=== PATIENT | female | born 1950 | race African-American/Black ===

== ENCOUNTER 2017-10-16 10:01 | Inpatient (IN) | payer MEDICARE, MEDICAID ==
[~2017-10-16] VITALS: Ht 157.5 cm; Wt 68.0 kg
[~2017-10-16 10:01] MED LIST: METF1000
--- NOTE | 2017-10-16 10:23 | NUR ---
PT BIB SELF C/O MIDSTERNAL CHEST PRESSURE SINCE 629 WITH SOB, RESPIRATIONS APPEAR SLIGHTLY LABORED BUT ENCOURAGED PATIENT TO TAKE CALM, DEEP, METERED BREATHS AND PT REPORTS GRADUAL RELIEF OF PAIN WITH DEEP BREATHING. ALSO C/O CONSTIPATION. DENIES ABD PAIN. SKIN WARM DRY. IN ER BED 12 ON MONITOR.
[2017-10-16] MEDS ORDERED: MULT-24 PO (10:25)
[2017-10-16] MEDS ORDERED: HYDR25TA4 PO (10:25)
[2017-10-16] MEDS ORDERED: POLY17PO4 PO (10:25)
[2017-10-16] MEDS ORDERED: ASPI-1169 PO (10:25)
[2017-10-16] MEDS ORDERED: METF-440 PO (10:25)
[2017-10-16] MEDS ORDERED: ASPIRIN 325 MG TABLET ONE (10:27)
--- NOTE | 2017-10-16 10:29 | NUR ---
CALLED PHARMACY TO RESTOCK NITRO PASTE IN OMNICELL
[2017-10-16] MEDS ORDERED: NITROGLYCERIN PACKET 1 GM PACKET TD ONE (10:30)
[2017-10-16] MEDS ORDERED: ASPIRIN 325 MG TABLET PO ONE (10:30)
[2017-10-16 10:33] LABS: BASOPHILS % (AUTO) 0.8 % (0.0-2.0); EOSINOPHILS % (AUTO) 3.8 % (0.0-6.0); HEMATOCRIT 29 % (33-45); HEMOGLOBIN 9.7 g/dL (11.5-14.8); LYMPHOCYTES # (AUTO) 1.6 /CMM (0.8-4.8); LYMPHOCYTES % (AUTO) 37.1 % (20.0-44.0); MEAN CORPUSCULAR HGB CONC 33 g/dl (31.0-36.0); MEAN CORPUSCULAR VOLUME 84 fL (82-100); MONOCYTES # (AUTO) 0.4 /CMM (0.1-1.30); MONOCYTES % (AUTO) 8.8 % (2.0-12.0); NEUTROPHILS # (AUTO) 2.1 /CMM (1.8-8.9); NEUTROPHILS % (AUTO) 49.5 % (43.0-81.0); PLATELET COUNT (AUTO) 310 /CMM (150-450); RDW COEFFICIENT OF VARIATION 12.8 (11.5-15.0); RED BLOOD CELL COUNT(AUTO) 3.47 MIL/uL (4.0-5.2); WHITE BLOOD COUNT (AUTO) 4.3 K/uL (4.3-11.0)
[2017-10-16 10:44] LABS: CALCIUM, SERUM 9.5 mg/dL (8.5-10.1); CREATININE 1.4 mg/dL (0.6-1.3); POTASSIUM 3.9 mmol/L (3.5-5.1)
[2017-10-16] MEDS ORDERED: NITROGLYCERIN PACKET 1 GM PACKET ONE (10:45)
[2017-10-16 10:48] LABS: INR 0.94 (0.85-1.15)
[2017-10-16 10:53] LABS: TROPONIN I 2.469 ng/mL (0.00-0.056)
--- NOTE | 2017-10-16 11:03 | NUR ---
CALL PLACED TO DR ELIZONDO; DR AMBROSIO SPEAKING WITH HIM
--- NOTE | 2017-10-16 11:04 | NUR ---
REPORT CALLED TO DAVID OTTO FOR ADMISSION
--- NOTE | 2017-10-16 11:10 | NUR ---
PANEL CALL PLACED
[2017-10-16] MEDS ORDERED: HEPARIN INFUSION/D5W 500 ML IV ONE ×2 (11:19→11:30)
[2017-10-16] MEDS ORDERED: HEPARIN SODIUM, PORCINE 5000 UNITS/1 ML VIAL ONE (11:19)
[2017-10-16] MEDS ORDERED: MAGNESIUM HYDROXIDE 30 ML UDC PO PRN (11:30)
[2017-10-16] MEDS ORDERED: HEPARIN INFUSION/D5W 500 ML IV PRN (11:30)
[2017-10-16] MEDS ORDERED: MAG HYDROX/AL HYDROX/SIMETH 30 ML UDC PO PRN (11:30)
[2017-10-16] MEDS ORDERED: Z GUARD REMEDY 2 OZ OINT TP PRN (11:30)
[2017-10-16] MEDS ORDERED: ZOLPIDEM TARTRATE 5 MG TABLET PO PRN (11:30)
[2017-10-16] MEDS ORDERED: ACETAMINOPHEN 325 MG TABLET PO PRN (11:30)
[2017-10-16] MEDS ORDERED: ONDANSETRON HCL/PF 4 MG/2 ML VIAL IVP PRN (11:30)
[2017-10-16] MEDS ORDERED: HYDROCODONE/APAP 5/325MG 1 EACH TABLET PO PRN (11:30)
[2017-10-16] MEDS ORDERED: HEPARIN SODIUM, PORCINE 5000 UNITS/1 ML VIAL IV ONE (11:30)
--- NOTE | 2017-10-16 11:44 | NUR ---
HEPARIN BOLUS AND DRIP ADMINISTERED, WITNESSED BY GENER MANAGER SEARCH. PER ER MD, GIVE [id number] BOLUS.
--- NOTE | 2017-10-16 11:55 | NUR ---
PT TRANSPORTED TO 111-1 IN STABLE CONDITION VIA ACLS PROTOCOL WITH HEPARIN DRIP ONGOING. NAD NOTED. VSS.
[2017-10-16 12:00] VITALS: BP 131/63
--- NOTE | 2017-10-16 12:00 | NUR ---
ELECTRONIC EQUIPMENT INSTALLER NOTES RECEIVED PATIENT FROM ER VIA PADMINI REPORT RECEIVED FROM CELL ROOM OPERATOR TULIO, PATIENT IS AOX3, FROM HOME WHERE SHE LIVES ALONE, CO OF CHEST PAIN SINCE 0630 TODAY, PATIENT STATES SHE IS FEELING BETTER AT THIS TIME, PATIENT IS CURRENTLY ON TELE MONITORING SR 80s HR, L HAND 20G INFUSING HEPARIN GTT 20.4 ML/HR 1020 UNITS/HR, NEW PTT RECHECK AT 1735 FOR HEPARIN DOSING PROTOCOL, BED IN LOW AND LOCKED POSITION CALL LIGHT WITHIN REACH, WILL CONTINUE TO MONITOR.
[2017-10-16] MEDS: NITROGLYCERIN PACKET 1 GM PACKET TOP SCH ×2 (12:42→21:00)
[2017-10-16] MEDS ORDERED: MORPHINE SULFATE INJ 4 MG/ML DISP.SYRIN IV PRN (13:00)
[2017-10-16] MEDS: METOPROLOL TARTRATE 25 MG TABLET PO SCH ×2 (13:44→17:06)
[2017-10-16 16:00] VITALS: BP 106/61
[2017-10-16] MEDS ORDERED: MAGNESIUM CITRATE 296 ML BOTTLE PO ONE (16:30)
[2017-10-16] MEDS ORDERED: BISACODYL SUPP (10 MG) 10 MG/SUPP.RECT SUPP.RECT RC PRN (16:30)
--- NOTE | 2017-10-16 18:52 | NUR ---
RADIO INSTALLER AUTOMOBILE NOTES PATIENT RESTING IN BED, NO CO OF CHEST PAIN, PATIENT IS TO BE NPO AT MIDNIGHT FOR CARDIAC CATHERIZATION PROCEDURE AT [facility], AWAITING PTT FOR HEPARIN DRIP, WILL CONTINUE TO MONITOR.
[2017-10-16 20:00] VITALS: BP 123/62
[2017-10-16] MEDS ORDERED: ATORVASTATIN 40 MG TABLET PO SCH (22:00)
[2017-10-17] VITALS: BP 159/87
[2017-10-17 04:00] VITALS: BP 127/63
[2017-10-17] MEDS: NITROGLYCERIN PACKET 1 GM PACKET TOP SCH ×2 (04:44→13:00)
[2017-10-17] MEDS ORDERED: PANTOPRAZOLE 40 MG TABLET.DR PO SCH (07:30)
--- NOTE | 2017-10-17 07:30 | NUR ---
TOP COLLAR MAKER INITIAL NOTES RN RECEIVED PATIENT IN BED, PATIENT IS AOX3, NO COMPLAINTS OF CHEST PAIN AT THIS TIME, PATIENT IS ON TELE MONITORING SR 80s HR, L HAND 20G PATIENT REMAINS INFUSING HEPARIN GTT 20.4 ML/HR 1020 UNITS/HR, BED IN LOW AND LOCKED POSITION CALL LIGHT WITHIN REACH, WILL CONTINUE TO MONITOR THROUGHOUT THE DAY PATIENT PENDING TRANSFER TO [facility] FOR A CARDIAC CATHETERIZATION .
[2017-10-17 08:00] VITALS: BP_SYST 125; BP_SYST 141; BP_DIAS 56; BP_DIAS 74
[2017-10-17 08:06] LABS: BASOPHILS % (AUTO) 0.4 % (0.0-2.0); HEMATOCRIT 27 % (33-45); HEMOGLOBIN 9.3 g/dL (11.5-14.8); LYMPHOCYTES # (AUTO) 1.2 /CMM (0.8-4.8); LYMPHOCYTES % (AUTO) 18.3 % (20.0-44.0); MEAN CORPUSCULAR HGB CONC 34 g/dl (31.0-36.0); MEAN CORPUSCULAR VOLUME 86 fL (82-100); MONOCYTES # (AUTO) 0.4 /CMM (0.1-1.30); MONOCYTES % (AUTO) 6.5 % (2.0-12.0); NEUTROPHILS # (AUTO) 5.1 /CMM (1.8-8.9); NEUTROPHILS % (AUTO) 74.8 % (43.0-81.0); PLATELET COUNT (AUTO) 258 /CMM (150-450); RDW COEFFICIENT OF VARIATION 13.4 (11.5-15.0); RED BLOOD CELL COUNT(AUTO) 3.21 MIL/uL (4.0-5.2); WHITE BLOOD COUNT (AUTO) 6.8 K/uL (4.3-11.0)
[2017-10-17] MEDS: METOPROLOL TARTRATE 25 MG TABLET PO SCH (09:00)
[2017-10-17] MEDS ORDERED: ASPIRIN 81 MG TAB.CHEW PO SCH (09:00)
--- NOTE | 2017-10-17 09:27 | NUR ---
RN NOTE PATIENT MEDICATION NOT GIVEN DUE TO NPO STATUS PENDING CARDIAC CATHETERIZATION THIS AM AT [facility] , RN CALLED REPORT AND SPOKE WITH MY,RN - .PT WILL NOT BE DISCHARGE AT THIS TIME JUST TRANSFER FOR CLINICAL SUPPORT SPECIALIST HAS UPDATED THE PATIENT ON THE PLAN OF CARE.
[2017-10-17 09:28] LABS: CALCIUM, SERUM 9.1 mg/dL (8.5-10.1); CREATININE 1.5 mg/dL (0.6-1.3); POTASSIUM 4.1 mmol/L (3.5-5.1)
[2017-10-17 09:32] LABS: MAGNESIUM 2.6 mg/dL (1.8-2.4); PHOSPHORUS 4.1 mg/dL (2.5-4.9)
[2017-10-17 09:52] LABS: TROPONIN I 1.316 ng/mL (0.00-0.056)
--- NOTE | 2017-10-17 12:03 | NUR ---
dinorah note patient not on the unit at this time - [place] [facility] [place] Addendum: 10/17/17 at 1205 by SHARON SARGENT RN Amended: Links added.
--- NOTE | 2017-10-17 12:07 | NUR ---
dinorah note patient ins not on the unit at this time transferred to [facility] Addendum: 10/17/17 at 1208 by SHARON SARGENT RN Amended: Links added.
--- NOTE | 2017-10-17 12:16 | NUR ---
dinorah note patient off the unit at this time Addendum: 10/17/17 at 1217 by SHARON SARGENT RN Amended: Links added.
== END 2017-10-17 10:00 | disposition short-term general hospital (02) | DRG 280 ==
LOC: ER 10:02 → TELE1 12:06
PROVIDERS: ADMIT Internal Medicine; ATTEND Internal Medicine
DX: I21.4 Non-ST elevation (NSTEMI) myocardial infarction (principal); I50.21 Acute systolic (congestive) heart failure; N17.0 Acute kidney failure with tubular necrosis; I25.10 Atherosclerotic heart disease of native coronary artery without angina pectoris; E11.9 Type 2 diabetes mellitus without complications; D64.9 Anemia, unspecified; I11.0 Hypertensive heart disease with heart failure; Z88.0 Allergy status to penicillin; Z79.82 Long term (current) use of aspirin; Z79.84 Long term (current) use of oral hypoglycemic drugs; K59.00 Constipation, unspecified; Z87.891 Personal history of nicotine dependence
CPT/HCPCS: 36415; 71045-TC; 80048-TC; 80061-TC; 83735-TC; 84100-TC; 84484-TC; 85025-TC; 85730-TC; 93307-TC; A4606; J1644; Z7610